=== PATIENT | male | born 1995 | race African-American/Black ===

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

== ENCOUNTER 2018-04-24 18:38 | Emergency (ER) | payer OTHER ==
[2018-04-24] MEDS ORDERED: ACETAMINOPHEN 325 MG TABLET PO ONE (19:50)
--- NOTE | 2018-04-24 21:39 | ER Document Report ---
ED Medical Screen (RME) - General Chief Complaint: Dog Bite Stated Complaint: DOG BITE Time Seen by Provider: 04/24/18 21:37 Mode of Arrival: Wheelchair Information source: Patient Notes: Patient is an otherwise healthy 22-year-old male with chief complaint of dog bite to his left lower extremity on the posterior surface. There is a 2 cm superficial wound with adipose tissue exposed, no active bleeding at this time. Patient reports that the pain is so bad he cannot walk and cannot extend his leg fully. I have greeted and performed a rapid initial assessment of this patient. A comprehensive ED assessment and evaluation of the patient, analysis of test results and completion of the medical decision making process will be conducted by additional ED providers. Dictation of this chart was performed using voice recognition software; therefore, there may be some unintended grammatical errors. TRAVEL OUTSIDE OF THE [place] IN LAST 30 DAYS: No - Related Data Allergies/Adverse Reactions: Penicillins Allergy (Verified 11/11/16 11:19) Past Medical History Renal/ Medical History: Denies: Hx Peritoneal Dialysis Psychiatric Medical History: Reports: Hx Attention Deficit Hyperactivity Disorder Physical Exam - Vital signs Vitals: Temp Pulse Resp Pulse Ox 99.1 F 64 20 99 04/24/18 18:47 04/24/18 18:47 04/24/18 18:47 04/24/18 18:47 Course - Vital Signs Vital signs: Temp Pulse Resp BP Pulse Ox 99.1 F 64 20 99 04/24/18 18:47 04/24/18 18:47 04/24/18 18:47 04/24/18 18:47 Doctor's Discharge - Discharge Referrals: YENY FOX MD [Primary Care Provider] - Follow up as needed
--- NOTE | 2018-04-24 22:03 | RADIOLOGY REPORT (SQ) ---
2 VIEWS OF THE LEFT TIBIA/FIBULA HISTORY: Laceration to posterior calf. COMPARISON: None. FINDINGS/IMPRESSION: Soft tissue laceration with subcutaneous swelling in the posterior calf soft tissues. No radiopaque foreign body is seen. No cortical erosion or periosteal reaction to suggest acute osteomyelitis. No acute fracture or dislocation. Joint spaces are preserved.
[2018-04-24] MEDS ORDERED: DOXYCYCLINE HYCLATE 100 MG TABLET PO ONE (23:28)
[2018-04-24] MEDS ORDERED: DIPH/PERTUSS(ACELL)/TETANUS VAC/PF 0.5 ML SYR (>=10YO) IM ONE (23:29)
[2018-04-24] MEDS ORDERED: IBUPROFEN 800 MG TABLET PO ONE (23:29)
[2018-04-24] MEDS ORDERED: HYDROCODONE/ACETAMINOPHEN 5-325 MG (6 TAB/ER DISP) PO PRN (23:29)
[2018-04-24] MEDS ORDERED: BACITRACIN OPH OINT 3.5 GM EXT ONE (23:30)
--- NOTE | 2018-04-24 23:37 | ER Document Report ---
ED General - General Chief Complaint: Dog Bite Stated Complaint: DOG BITE Time Seen by Provider: 04/24/18 21:37 Mode of Arrival: Wheelchair TRAVEL OUTSIDE OF THE [place] IN LAST 30 DAYS: No - HPI Notes: Patient is a 22-year-old male presents to the emergency department with report that he was bitten in the back of the left lower leg by a neighborhood dog earlier today and presents with localized pain. The patient reports no fever chills or numbness or paresthesia. He denies any other injury. He is unaware of his last tetanus, and a tetanus shot was given. The patient has followed up with animal control who is investigating the dog and the dog's owners and will make sure the dog is found over the patient will return for rabies vaccination shots. The patient is not diabetic. He does report some pain with ambulation. - Related Data Allergies/Adverse Reactions: Penicillins Allergy (Verified 11/11/16 11:19) Past Medical History - General Information source: Patient - Social History Smoking Status: Unknown if Ever Smoked Frequency of alcohol use: None Drug Abuse: None Lives with: Family Family History: Reviewed & Not Pertinent Renal/ Medical History: Denies: Hx Peritoneal Dialysis Psychiatric Medical History: Reports: Hx Attention Deficit Hyperactivity Disorder Review of Systems - Review of Systems -: Yes All other systems reviewed and negative Physical Exam - Vital signs Vitals: Temp Pulse Resp Pulse Ox 99.1 F 64 20 99 04/24/18 18:47 04/24/18 18:47 04/24/18 18:47 04/24/18 18:47 - Notes Notes: Physical exam shows puncture wound 1.5 cm L upper calf region. No bony deformity or crepitance. Distally, the patient is neurovascularly intact with good distal sensation and capillary refill and pulses. No proximal erythema or adenopathy. No gross cellulitis noted. No foreign body noted. Patient has adequate tendon function and plantar flexion. No evidence for tendon injury or exposed tendon on exam. No breach of the knee joint as this is distal. Course - Re-evaluation Re-evalutation: 04/24/18 23:50 Patient was given a tetanus shot and doxycycline and ibuprofen and Ernul to take home with him. Wound area was cleaned and antibiotic ointment was applied and patient was given a pair crutches. Strict instructions were given to follow -up with animal control to determine whether not the patient would need tetanus immunization. X-ray negative for bony injury. No clinical suggestion for compartment syndrome. No significant deeper crush injury noted. 04/24/18 23:51 - Vital Signs Vital signs: Temp Pulse Resp BP Pulse Ox 99.1 F 64 20 99 04/24/18 18:47 04/24/18 18:47 04/24/18 18:47 04/24/18 18:47 Discharge - Discharge Clinical Impression: Dog bite Qualifiers: Encounter type: initial encounter Qualified Code(s): W54.0XXA - Bitten by dog, initial encounter Condition: Stable Disposition: HOME, SELF-CARE Instructions: Animal Bites ([facility]), Tetanus Immunization Given ([facility]) Additional Instructions: Apply antibiotic ointment to the wound and keep wound clean. Return to the emergency department in case of fever, severe pain or swelling. Use crutches as needed for pain and elevate the leg and limit walking as needed for pain. Follow-up with animal control. If the animal cannot be found by tomorrow, then return for rabies vaccination series and shots. Prescriptions: Ibuprofen [Ibu] 800 mg PO Q8HP PRN #30 tablet PRN Reason: Doxycycline Hyclate 100 mg PO BID #20 capsule Forms: Return to Work Referrals: YENY FOX MD [Primary Care Provider] - Follow up as needed
== END 2018-04-25 00:30 | disposition home or self-care (01) ==
LOC: ER 18:38
DX: S81.852A Open bite, left lower leg, initial encounter (principal); W54.0XXA Bitten by dog, initial encounter
CPT/HCPCS: 90471; 90715; 99283; J3490

== ENCOUNTER 2018-10-05 20:52 | Emergency (ER) | payer OTHER ==
--- NOTE | 2018-10-05 21:30 | RADIOLOGY REPORT (SQ) ---
EXAM DESCRIPTION: XR ANKLE 3 OR MORE VIEWS COMPLETED DATE/TME: 10/05/2018 00:00 CLINICAL HISTORY: 23 years, Male, twisted COMPARISON: None. NUMBER OF VIEWS: 3 TECHNIQUE: 3 view right ankle LIMITATIONS: None. FINDINGS: Rather extensive lateral soft tissue swelling. However, negative for acute fracture or dislocation. However, there is a well-defined ovoid lucency measuring 3.2 mm of the medial talus, concerning for osteochondral defect.. IMPRESSION: Lateral soft tissue swelling. Negative for acute fracture. However, findings concerning for osteochondral defect of the medial talar dome. copyright 2010 [employer]- All Rights Reserved
[2018-10-05] MEDS ORDERED: HYDROCODONE/ACETAMINOPHEN 5-325 MG (6 TAB/ER DISP) PO PRN (23:10)
--- NOTE | 2018-10-05 23:15 | ER Document Report ---
HPI - HPI Patient complains to provider of: Ankle injury Time Seen by Provider: 10/05/18 22:59 Onset: This evening Onset/Duration: Sudden Quality of pain: Sharp Pain Level: 5 Context: Patient states he was playing basketball and rolled his right ankle. Patient complains of right lateral ankle pain with swelling. Associated Symptoms: Other - Right ankle injury Exacerbated by: Standing, Movement, Walking Relieved by: Denies Similar symptoms previously: Yes Recently seen / treated by doctor: No - ROS ROS below otherwise negative: Yes Systems Reviewed and Negative: Yes All other systems reviewed and negative - REPRODUCTIVE Reproductive: DENIES: : - MUSCULOSKELETAL Musculoskeletal: REPORTS: Extremity pain, Swelling - DERM Skin Color: Normal Skin Problems: None Past Medical History - General Information source: Patient - Social History Smoking Status: Never Smoker Frequency of alcohol use: None Drug Abuse: None Occupation: none Lives with: Family Family History: Reviewed & Not Pertinent Renal/ Medical History: Denies: Hx Peritoneal Dialysis Psychiatric Medical History: Reports: Hx Attention Deficit Hyperactivity Disorder Surgical Hx: Negative Vertical Provider Document - CONSTITUTIONAL Agree With Documented VS: Yes Exam Limitations: No Limitations General Appearance: WD/WN, No Apparent Distress - INFECTION CONTROL TRAVEL OUTSIDE OF THE [place] IN LAST 30 DAYS: No - HEENT HEENT: Atraumatic, Normocephalic - NECK Neck: Normal Inspection - RESPIRATORY Respiratory: No Respiratory Distress - CARDIOVASCULAR Pulses: Normal: Dorsalis pedis - MUSCULOSKELETAL/EXTREMETIES Musculoskeletal/Extremeties: MAEW, FROM, Tender - Right ankle tenderness with 3+ edema to the right lateral malleolar area, Edema, Eccymosis - NEURO Level of Consciousness: Awake, Alert, Appropriate Motor/Sensory: No Motor Deficit - DERM Integumentary: Warm, Dry, No Rash Course - Re-evaluation Re-evalutation: 10/05/18 23:11 Reviewed patient's radiology images. No obvious fracture. Discussed with patient and family concerned about osteochondral defect noted on the medial aspect of the talar bone. Patient advised that he will need to follow-up with orthopedics for further evaluation of this finding in addition to the sprain for which he is being treated tonight. - Vital Signs Vital signs: Temp Pulse Resp BP Pulse Ox 99.3 F 80 16 132/56 H 100 10/05/18 21:07 10/05/18 21:07 10/05/18 21:07 10/05/18 21:07 10/05/18 21:07 - Diagnostic Test Radiology reviewed: Image reviewed, Reports reviewed Procedures - Immobilization Right Ankle Pre-Proc Neuro Vasc Exam: Normal Immobilizer type: Ankle stirrup Performed by: PCT Post-Proc Neuro Vasc Exam: Normal Alignment checked and good: Yes Discharge - Discharge Clinical Impression: Osteochondral defect of talus Right ankle sprain Qualifiers: Encounter type: initial encounter Involved ligament of ankle: unspecified ligament Qualified Code(s): S93.401A - Sprain of unspecified ligament of right ankle, initial encounter Condition: Stable Disposition: HOME, SELF-CARE Instructions: Ice & Elevation ([facility]), Oral Narcotic Medication ([facility]), Sprained Ankle ([facility]), Temporary Splint ([facility]) Additional Instructions: Return immediately for any new or worsening symptoms Followup with your primary care provider, call tomorrow to make a followup appointment It is important that you follow-up with orthopedics for further evaluation of the osteochondral defect noted on the x-ray. This area will need further evaluation by the orthopedic doctor. Call tomorrow for an appointment. Prescriptions: Naproxen [Naprosyn 250 Nmg Tablet] 1 tab PO BID #14 tablet Referrals: YENY FOX MD [Primary Care Provider] - Follow up as needed [facility] [Provider Group] - Follow up in 3-5 days
[2018-10-05 23:31] VITALS: BP 147/70
== END 2018-10-05 23:56 | disposition home or self-care (01) ==
LOC: ER 20:52
PROC: 2W3QX1Z Immobilization of Right Lower Leg using Splint (ICD-10-PCS; principal; 2018-10-05)
DX: S93.401A Sprain of unspecified ligament of right ankle, initial encounter (principal); M25.571 Pain in right ankle and joints of right foot; M79.89 Other specified soft tissue disorders; X50.1XXA Overexertion from prolonged static or awkward postures, initial encounter; Y93.67 Activity, basketball
CPT/HCPCS: 99283; 73610; 29515; L1902

== ENCOUNTER 2019-07-09 19:07 | Emergency (ER) | payer OTHER ==
[2019-07-09 19:36] VITALS: BP 144/59
--- NOTE | 2019-07-09 20:12 | ER Document Report ---
ED Skin Rash/Insect Bite/Abscs - General Chief Complaint: Abscess Stated Complaint: BUG BITE Time Seen by Provider: 07/09/19 20:05 Primary Care Provider: YENY FOX MD [COMMUNITY BASED STAFF] - Follow up as needed Mode of Arrival: Ambulatory Information source: Patient TRAVEL OUTSIDE OF THE [place] IN LAST 30 DAYS: No - HPI Patient complains to provider of: Insect bite Onset/Duration: Gradual Quality of pain: Achy Severity: Moderate Pain Level: 3 Skin Character: Other - Corrected insect bite Quality of rash: Painful Identify cause: Yes Exacerbated by: Walking Relieved by: Denies Similar symptoms previously: Yes Recently seen / treated by doctor: No - Related Data Allergies/Adverse Reactions: Penicillins Allergy (Verified 11/11/16 11:19) Past Medical History - General Information source: Patient - Social History Smoking Status: Former Smoker Frequency of alcohol use: Occasional Drug Abuse: None Occupation: painting Lives with: Family Family History: Reviewed & Not Pertinent Patient has suicidal ideation: No Patient has homicidal ideation: No - Past Medical History Cardiac Medical History: Reports: None Pulmonary Medical History: Reports: None Neurological Medical History: Reports: None Endocrine Medical History: Reports: None Renal/ Medical History: Reports: None Malignancy Medical History: Reports None GI Medical History: Reports: None Musculoskeletal Medical History: Reports None Skin Medical History: Reports None Psychiatric Medical History: Reports: Hx Attention Deficit Hyperactivity Disorder Traumatic Medical History: Reports: None Infectious Medical History: Reports: None Surgical Hx: Negative Past Surgical History: Reports: None - Immunizations Immunizations up to date: Yes Hx Diphtheria, Pertussis, Tetanus Vaccination: Yes - 2016 Review of Systems - Review of Systems Constitutional: No symptoms reported EENT: No symptoms reported Cardiovascular: No symptoms reported Respiratory: No symptoms reported Gastrointestinal: No symptoms reported Genitourinary: No symptoms reported Male Genitourinary: No symptoms reported Musculoskeletal: No symptoms reported Skin: Other - Infected insect bite to the right thigh Hematologic/Lymphatic: No symptoms reported Neurological/Psychological: No symptoms reported -: Yes All other systems reviewed and negative Physical Exam - Vital signs Vitals: Temp Pulse Resp BP Pulse Ox 98.1 F 75 20 144/59 H 97 07/09/19 19:34 07/09/19 19:34 07/09/19 19:34 07/09/19 19:34 07/09/19 19:34 Interpretation: Normal, Hypertensive - 118/62 - General General appearance: Appears well, Alert - HEENT Head: Normocephalic, Atraumatic Eyes: Normal Pupils: PERRL - Respiratory Respiratory status: No respiratory distress Chest status: Nontender Breath sounds: Normal Chest palpation: Normal - Cardiovascular Rhythm: Regular Heart sounds: Normal auscultation Murmur: No - Abdominal Inspection: Normal Distension: No distension Bowel sounds: Normal Tenderness: Nontender Organomegaly: No organomegaly - Back Back: Normal, Nontender - Extremities General upper extremity: Normal inspection, Nontender, Normal color, Normal ROM, Normal temperature General lower extremity: Normal inspection, Nontender, Normal color, Normal ROM, Normal temperature, Normal weight bearing. No: Luc's sign - Neurological Neuro grossly intact: Yes Cognition: Normal Orientation: AAOx4 [place] Coma Scale Eye Opening: Spontaneous [place] Coma Scale Verbal: Oriented [place] Coma Scale Motor: Obeys Commands [place] Coma Scale Total: 15 Speech: Normal Motor strength normal: LUE, RUE, LLE, RLE Sensory: Normal - Psychological Associated symptoms: Normal affect, Normal mood - Skin Skin Temperature: Warm Skin Moisture: Dry Skin Color: Normal Skin irregularity: Abscess - Infected insect bite to the right thigh he has been scratching an insect bite Character of irregularity: Maculopapular, Erythematous Irregularity with: Swelling, Tenderness, Warmth, Inflammation Course - Re-evaluation Re-evalutation: 07/09/19 20:15 Patient was given instructions for antibiotics Epson salt Tylenol Motrin. Patient was discharged home. His blood pressure was 118/62 in the pit area. - Vital Signs Vital signs: Temp Pulse Resp BP Pulse Ox 98.1 F 75 20 144/59 H 97 07/09/19 19:34 07/09/19 19:34 07/09/19 19:34 07/09/19 19:34 07/09/19 19:34 Discharge - Discharge Clinical Impression: Infected insect bite of right thigh Qualifiers: Encounter type: initial encounter Qualified Code(s): S70.361A - Insect bite (nonvenomous), right thigh, initial encounter Condition: Stable Disposition: HOME, SELF-CARE Additional Instructions: Insect Bites You have been bitten by an insect. These bites can cause two types of swelling: an initial swelling due to insect saliva or injected poison, and a late reaction due to your body's allergic reaction. This initial local reaction may be uncomfortable but is not dangerous. Often there's an itchy "hive" at the bite location. This is treated with antihistamines, cold compresses, and resting the affected body part. The later reaction often develops about the second day. The entire area becomes very swollen, red, itchy, and tender. This is an allergic reaction. Your body is attacking the leftover insect saliva or venom. This type of allergy is unpleasant, but not dangerous. We treat this swelling with cortisone-type medicine. Sometimes we use antibiotics if we're worried about infection. Antihistamines help with the itch. If you develop a fever, chills, a red streak, or swollen glands in the area of the bite, infection may be starting. Return at once. Your insect bite is infected you will need to use Epson salt soaks and doxycycline as we have discussed. Any area well with soap and water and then do the Epson salt soaks. Ibuprofen Ibuprofen is an excellent, safe drug for pain control. In addition, it has potent antiinflammatory effects which are beneficial, especially in the treatment of injuries, arthritis, or tendonitis. It's best to take ibuprofen with food. Persons with ulcer disease or allergy to aspirin should notify their physician of this before taking ibuprofen. Take the medication exactly as prescribed. Don't take additional doses unless instructed to do so by your doctor. If you develop wheezing, shortness of breath, hives, faintness, stomach pain, vomiting, or dark black stools, return for re-evaluation at once. Doxycycline Doxycycline (Vibramycin, Doryx) is an antibiotic of the tetracycline family. This type of drug is useful for infections of the respiratory tract and genital tract, and is sometimes used for intestinal infections. Unlike most tetracyclines, doxycycline can be taken with food. It is longer acting, and (usually) less prone to side effects than regular tetracycline. Tetracycline antibiotics can stain immature teeth and SHOULD NOT BE TAKEN BY CHILDREN, NURSING MOTHERS, OR WOMEN. Tetracyclines can make you more prone to sunburn. Abdominal cramping, nausea, and diarrhea are occasional side effects. Women may experience vaginal yeast infections. Call the doctor at once if you develop hives, itching, shortness of breath, or lightheadedness. Epsom Salt Soaks Soak the wound area in a container of warm epsom salt water. If you can't get the wound area into a bucket or gamez, use a folded towel soaked in the epsom salt solution and apply to the area. Use clean hot tap water (about the temperature of a very warm bath), mixing in about one (1) teaspoon for every pint of water. Two gallon --> 16 teaspoons Epsom Salts One gallon --> 8 teaspoons Epsom Salts Two quarts --> 4 teaspoons Epsom Salts One quart --> 2 teaspoons Epsom Salts Soak the wound for about 20 minutes while gently moving it around in the water. Repeat this four (4) times a day. FOLLOW-UP CARE: If you have been referred to a physician for follow-up care, call the physicians office for an appointment as you were instructed or within the next two days. If you experience worsening or a significant change in your symptoms, notify the physician immediately or return to the Emergency Department at any time for re-evaluation. Prescriptions: Doxycycline Hyclate 100 mg PO BID #20 capsule Forms: Elevated Blood Pressure Referrals: YENY FOX MD [COMMUNITY BASED STAFF] - Follow up as needed
== END 2019-07-09 20:21 | disposition home or self-care (01) ==
LOC: ER 19:07
DX: S70.361A Insect bite (nonvenomous), right thigh, initial encounter (principal); L08.9 Local infection of the skin and subcutaneous tissue, unspecified; W57.XXXA Bitten or stung by nonvenomous insect and other nonvenomous arthropods, initial encounter; Z87.891 Personal history of nicotine dependence; Z88.0 Allergy status to penicillin
CPT/HCPCS: 99281